=== PATIENT | male | born 1960 | race Caucasian/White ===

== ENCOUNTER 2019-09-18 13:54 | Inpatient (IN) | payer MEDICAID ==
[~2019-09-18] VITALS: Ht 172.7 cm; Wt 77.1 kg
[~2019-09-18 13:54] MED LIST: PROT20 PO
[2019-09-18] MEDS ORDERED: LABETALOL 5MG/ML SYR 20 MG/4 ML SYRINGE IV ONE (14:00)
[2019-09-18 15:10] LABS: BASOPHILS % 0.4 % (0.0-2.0); EOSINOPHILS % 2.6 % (0.0-5.0); HEMATOCRIT. 40.9 % (42.0-52.0); HEMOGLOBIN. 14.7 g/dL (14.0-18.0); LYMPHOCYTES % 27.6 % (20.0-50.0); MEAN CORPUSCULAR HEMOGLOBIN 30.5 pg (28.0-32.0); MEAN PLATELET VOLUME 8.8 fl (7.4-10.4); MONOCYTES % 8.1 % (2.0-8.0); NEUTROPHILS % 61.3 % (40.0-76.0); PLATELET 161 x1000/uL (130-400); RED BLOOD CELL COUNT 4.81 mill/uL (4.7-6.1); RED CELL DISTRIBUTION WIDTH 13.8 % (11.6-14.6)
[2019-09-18 15:19] LABS: CHLORIDE 102 mEq/L (98-107); INR 0.9; PARTIAL THROMBOPLASTIN TIME 25.2 sec (23.4-31.0)
[2019-09-18 15:23] LABS: ETHANOL BLOOD < 10 mg/dL
[2019-09-18 15:25] LABS: LDL CHOLESTEROL 83 mg/dL (5-100)
[2019-09-18] MEDS ORDERED: IOHEXOL-350 100 ML BOTTLE ONE (15:34)
[2019-09-18] MEDS ORDERED: ASPIRIN 325MG EC TABLET PO ONE (16:00)
[2019-09-18] MEDS ORDERED: CLONIDINE 0.2MG TABLET PO ONE (17:15)
[2019-09-18] MEDS ORDERED: ACETAMINOPHEN 325MG TABLET PO PRN (17:30)
[2019-09-18] MEDS ORDERED: CLONIDINE 0.1MG TABLET PO PRN (17:30)
[2019-09-18] MEDS ORDERED: DEXTROSE 50% WATER 50ML SYRINGE IV PRN (17:30)
[2019-09-18] MEDS ORDERED: AMLODIPINE 10MG TABLET PO NR ×2 (17:45→18:01)
[2019-09-18] MEDS ORDERED: INSULIN LISPRO 100 UNITS/ML SUBCUT SCH (18:20)
[2019-09-18 19:15] LABS: CLARITY URINE CLEAR (CLEAR); COLOR URINE YELLOW (YELLOW); KETONES URINE TRACE (NEGATIVE); LEUKOCYTE ESTERASE URINE NEGATIVE (NEGATIVE); NITRITE URINE NEGATIVE (NEGATIVE); OCCULT BLOOD URINE NEGATIVE (NEGATIVE); PROTEIN URINE NEGATIVE (NEGATIVE); SPECIFIC GRAVITY URINE 1.065 (1.005-1.030)
[2019-09-18 19:30] LABS: *AMPHETAMINES SCREEN URINE NEGATIVE (NEGATIVE); *BARBITURATES SCREEN URINE NEGATIVE (NEGATIVE); *BENZODIAZEPINES SCREEN URINE NEGATIVE (NEGATIVE); *COCAINE SCREEN URINE NEGATIVE (NEGATIVE); METHADONE URINE SCREEN NEGATIVE (NEGATIVE)
[2019-09-18 19:31] LABS: CANNABINOID URINE SCREEN NEGATIVE (NEGATIVE); OPIATES URINE SCREEN NEGATIVE (NEGATIVE); PHENCYCLIDINE URINE SCREEN NEGATIVE (NEGATIVE)
[2019-09-18 22:00] VITALS: BP 167/99
[2019-09-18 22:15] VITALS: BP 167/99
[2019-09-18] MEDS: BLOOD SUGAR DIAGNOSTIC STRIP TEST SCH (22:56)
[2019-09-18] MEDS: INSULIN LISPRO 100 UNITS/ML SUBCUT SCH (22:56)
[2019-09-19] VITALS: BP 119/80
[2019-09-19 04:00] VITALS: BP 148/58
[2019-09-19] MEDS: BLOOD SUGAR DIAGNOSTIC STRIP TEST SCH (06:16)
[2019-09-19] MEDS: INSULIN LISPRO 100 UNITS/ML SUBCUT SCH ×2 (06:34→12:15)
[2019-09-19] MEDS ORDERED: ASPIRIN 325MG EC TABLET PO SCH (09:00)
[2019-09-19] MEDS ORDERED: AMLODIPINE 10MG TABLET PO SCH (09:00)
[2019-09-19] MEDS ORDERED: INSULIN GLARGINE UD 100 UNITS/ML SYR SUBCUT SCH (10:00)
[2019-09-19] MEDS ORDERED: ASPI-1497 MT (14:11)
[2019-09-19] MEDS ORDERED: INSU100I28 SQ (14:11)
[2019-09-19] MEDS ORDERED: AMLO10TA4 MT (14:11)
[2019-09-19] MEDS ORDERED: BLOO-1465 MT (14:11)
[2019-09-19] MEDS ORDERED: LANC-934 TP (14:11)
[2019-09-19] MEDS ORDERED: ATOR10TA MT (16:40)
[2019-09-19 19:57] VITALS: BP 157/90
[2019-09-19] MEDS ORDERED: ATORVASTATIN CALCIUM 10MG TABLET PO SCH (21:00)
== END 2019-09-19 20:45 | disposition home or self-care (01) | DRG 47 ==
LOC: ER 14:07 → 5WST 15:52 → ENRESERV 19:57
PROVIDERS: ADMIT Internal Medicine; ATTEND Internal Medicine
DX: G45.9 Transient cerebral ischemic attack, unspecified (principal); G81.94 Hemiplegia, unspecified affecting left nondominant side; I10 Essential (primary) hypertension; E78.00 Pure hypercholesterolemia, unspecified; E11.9 Type 2 diabetes mellitus without complications; E78.5 Hyperlipidemia, unspecified; Z79.899 Other long term (current) drug therapy; Z79.4 Long term (current) use of insulin; Z86.73 Personal history of transient ischemic attack (TIA), and cerebral infarction without residual deficits
CPT/HCPCS: 36415; 70496; 70498; 70551; 71045; 80053; 80305; 80320; 81003; 82962; 83036; 83721; 84484; 85025; 93005; 97162; 99291; J1815; J3490; Q9967; G0480